=== PATIENT | female | born 1940 | race Caucasian/White ===

== ENCOUNTER 2022-05-02 21:56 | Emergency (ER) | payer MEDICARE | END 2022-05-02 23:39 | disposition home or self-care (01) | LOC: NAV ERS 21:56 | DX: G20 Parkinson's disease (principal); R53.1 Weakness; E03.9 Hypothyroidism, unspecified; Z79.899 Other long term (current) drug therapy | CPT/HCPCS: 99284 ==

== ENCOUNTER 2022-05-22 10:22 | Inpatient (IN) | payer OTHER, MEDICARE ==
[2022-05-22] MEDS ORDERED: Acetaminophen/Codeine 30-300mg Tablet ONE (12:04)
[2022-05-22 13:16] LABS: #Eosinphils 0.2 thou/uL (0.0-0.7); #Lymphocytes 0.9 thou/uL (1.20-3.40); #Monocytes 0.3 thou/uL (0.11-0.59); %Eosinophils 3.7 % (0.0-10.0); %Lymphocytes 20.9 % (21.0-51.0); %Monocytes 6.4 % (0.0-10.0); Hemoglobin 12.1 g/dL (12.0-16.0); Mean Corpuscular Hemoglobin 33.2 pg (27.0-31.0); Mean Platelet Volume 6.7 fL (7.4-10.4); Platelet Count 175 thou/uL (130-400); RBC Distribution Width 11.3 % (11.5-14.5); Red Blood Cell (RBC) Count 3.65 mill/uL (4.20-5.40); White Blood Cell (WBC) Count 4.4 thou/uL (4.8-10.8)
[2022-05-22 13:36] LABS: ALT (SGPT) 8 U/L (8-55); AST (SGOT) 16 U/L (5-34); Albumin 4.3 g/dL (3.4-4.8); Alkaline Phosphatase 50 U/L (40-110); Anion Gap 15 mmol/L (10-20); BUN (Urea Nitrogen) 12 mg/dL (9.8-20.1); Calc. Creatinine Clearance 0 mL/min (70-130); Calcium 9.6 mg/dL (7.8-10.44); Carbon Dioxide 24 mmol/L (23-31); Chloride 104 mmol/L (98-107); Estimated GFR 85; Globulin 2.3 g/dL (2.4-3.5); Glucose 126 mg/dL (83-110); Magnesium 2.4 mg/dL (1.6-2.6); Potassium 4.1 mmol/L (3.5-5.1); Protein, Total 6.6 g/dL (5.8-8.1); Sodium 139 mmol/L (136-145)
[2022-05-22 13:43] LABS: Bilirubin Negative (Negative); Blood, Urine Negative (Negative); Clarity Clear (Clear); Glucose, Urine (Dipstick) Negative (Negative); Ketone, Urine Negative (Negative); Leukocyte Negative (Negative); Nitrite Negative (Negative); Protein, Urine (Dipstick) Negative (Neg-Trace); Specific Gravity, Urine 1.015 (1.005-1.030); Urobilinogen 0.2 mg/dL (Less than 2)
[2022-05-22 14:11] LABS: SARS-CoV-2 NAA Rapid Test Not Detected (NotDetected)
[2022-05-22 15:53] VITALS: BMI 15.5
[2022-05-22] MEDS ORDERED: Acetaminophen 325 MG TAB PO PRN ×2 (17:50→18:00)
[2022-05-22] MEDS ORDERED: HYDROcodone/Acetaminophen 5/325 mg Tablet PO PRN (17:50)
[2022-05-22] MEDS ORDERED: Senokot S 8.6-50 MG TAB PO PRN (17:50)
[2022-05-22] MEDS ORDERED: Bisacodyl 10 MG SUPP PR PRN (17:50)
[2022-05-22] MEDS ORDERED: Ondansetron ODT 4 MG TAB PO PRN (17:50)
[2022-05-22] MEDS ORDERED: Morphine 4 MG/ML VIAL SLOW IVP PRN ×2 (17:54→18:11)
[2022-05-22] MEDS ORDERED: Ondansetron ODT 4 MG TAB SL PRN (18:00)
[2022-05-22] MEDS ORDERED: Ondansetron PF 4 MG/2 ML Vial IVP PRN (18:00)
[2022-05-22] MEDS: Carbidopa/Levodopa 25-100 mg Tablet PO SCH (20:19)
[2022-05-22] MEDS: Docusate 100 MG CAP PO SCH (20:19)
[2022-05-22] MEDS: Mirtazapine 15 MG Soltab PO SCH (20:19)
[2022-05-23] MEDS: Levothyroxine Sodium 50 MCG TAB PO SCH (05:11)
[2022-05-23 05:52] LABS: #Basophils 0.1 thou/uL (0.0-0.2); #Eosinphils 0.2 thou/uL (0.0-0.7); #Lymphocytes 0.9 thou/uL (1.20-3.40); #Monocytes 0.4 thou/uL (0.11-0.59); #Neutrophils 2.7 thou/uL (1.40-6.50); %Basophils 1.3 % (0.0-1.0); %Eosinophils 4.2 % (0.0-10.0); %Lymphocytes 21.4 % (21.0-51.0); %Monocytes 9.7 % (0.0-10.0); %Neutrophils 63.4 % (42.0-75.0); Hemoglobin 11.4 g/dL (12.0-16.0); Mean Corpuscular HGB CONC 32.1 g/dL (32.0-36.0); Mean Corpuscular Hemoglobin 33.2 pg (27.0-31.0); Mean Platelet Volume 7.1 fL (7.4-10.4); Platelet Count 159 thou/uL (130-400); RBC Distribution Width 11.5 % (11.5-14.5); Red Blood Cell (RBC) Count 3.45 mill/uL (4.20-5.40); White Blood Cell (WBC) Count 4.3 thou/uL (4.8-10.8)
[2022-05-23 06:04] LABS: Anion Gap 14 mmol/L (10-20); BUN (Urea Nitrogen) 14 mg/dL (9.8-20.1); Calc. Creatinine Clearance 39 mL/min (70-130); Carbon Dioxide 23 mmol/L (23-31); Chloride 102 mmol/L (98-107); Estimated GFR 88; Glucose 83 mg/dL (83-110); Sodium 135 mmol/L (136-145)
[2022-05-23] MEDS: Carbidopa/Levodopa 25-100 mg Tablet PO SCH ×3 (08:35→21:01)
[2022-05-23] MEDS: Enoxaparin Sodium 30 MG/0.3 ML SYRINGE SC SCH (08:35)
[2022-05-23] MEDS: Aripiprazole 10 MG TAB PO SCH (08:36)
[2022-05-23] MEDS: Bupropion 150 MG XL TAB PO SCH (08:36)
[2022-05-23] MEDS: Docusate 100 MG CAP PO SCH ×2 (08:36→21:01)
[2022-05-23] MEDS ORDERED: BUPROPION HCL 200 MG PO SCH (09:00)
[2022-05-23] MEDS ORDERED: Hyoscyamine Sulfate SL 0.125 mg Tablet PO PRN (11:43)
[2022-05-23] MEDS: Mirtazapine 15 MG Soltab PO SCH (21:01)
[2022-05-24] MEDS: Levothyroxine Sodium 50 MCG TAB PO SCH (05:36)
[2022-05-24] MEDS: Bupropion 150 MG XL TAB PO SCH (09:03)
[2022-05-24] MEDS: Docusate 100 MG CAP PO SCH (09:04)
[2022-05-24] MEDS: Aripiprazole 10 MG TAB PO SCH (09:04)
[2022-05-24] MEDS: Carbidopa/Levodopa 25-100 mg Tablet PO SCH ×2 (09:04→14:55)
[2022-05-24] MEDS: Enoxaparin Sodium 30 MG/0.3 ML SYRINGE SC SCH (09:04)
[2022-05-24 15:20] VITALS: TEMP 97.7
[2022-05-24 15:32] VITALS: BP 119/75
== END 2022-05-24 15:36 | disposition swing bed (61) | DRG 552 ==
LOC: NAV ERS 10:22 → UNDOADMIN 14:48 → NAV ACUTE 14:48 → UNDOADMIN 15:17 → NAV ACUTE 15:17
PROVIDERS: ADMIT Family Medicine; ATTEND Family Medicine
DX: S22.078A Other fracture of T9-T10 vertebra, initial encounter for closed fracture (principal); S32.19XA Other fracture of sacrum, initial encounter for closed fracture; G20 Parkinson's disease; S22.088A Other fracture of T11-T12 vertebra, initial encounter for closed fracture; F02.80 Dementia in other diseases classified elsewhere, unspecified severity, without behavioral disturbance, psychotic disturbance, mood disturbance, and anxiety; E03.9 Hypothyroidism, unspecified; F41.9 Anxiety disorder, unspecified; Z20.822 Contact with and (suspected) exposure to COVID-19; G47.00 Insomnia, unspecified; F31.9 Bipolar disorder, unspecified; W19.XXXA Unspecified fall, initial encounter; Z91.81 History of falling; Z88.2 Allergy status to sulfonamides; Y92.009 Unspecified place in unspecified non-institutional (private) residence as the place of occurrence of the external cause
CPT/HCPCS: 70450; 72125; 72128; 72131; 72192; 80048; 80053; 81003; 83735; 85025; J1650; U0002

== ENCOUNTER 2022-05-24 15:28 | Inpatient (IN) | payer MEDICARE ==
[2022-05-24] MEDS ORDERED: Bisacodyl 10 MG SUPP PR PRN (15:29)
[2022-05-24] MEDS ORDERED: Ondansetron ODT 4 MG TAB PO PRN (15:29)
[2022-05-24] MEDS ORDERED: Hyoscyamine Sulfate SL 0.125 mg Tablet PO PRN (15:29)
[2022-05-24] MEDS ORDERED: HYDROcodone/Acetaminophen 5/325 mg Tablet PO PRN (15:29)
[2022-05-24] MEDS: Mirtazapine 15 MG Soltab PO SCH (20:31)
[2022-05-24] MEDS: Docusate 100 MG CAP PO SCH (20:31)
[2022-05-24] MEDS: Carbidopa/Levodopa 25-100 mg Tablet PO SCH (20:31)
[2022-05-24] MEDS: Acetaminophen 325 MG TAB PO PRN (20:38)
[2022-05-25] MEDS: Levothyroxine Sodium 50 MCG TAB PO SCH (05:49)
[2022-05-25 06:01] LABS: #Eosinphils 0.2 thou/uL (0.0-0.7); #Lymphocytes 1.3 thou/uL (1.20-3.40); #Monocytes 0.4 thou/uL (0.11-0.59); %Basophils 1.2 % (0.0-1.0); %Eosinophils 4.4 % (0.0-10.0); %Lymphocytes 31.9 % (21.0-51.0); %Monocytes 10.7 % (0.0-10.0); %Neutrophils 51.8 % (42.0-75.0); Hemoglobin 10.7 g/dL (12.0-16.0); Mean Corpuscular HGB CONC 33.6 g/dL (32.0-36.0); Mean Corpuscular Hemoglobin 33.7 pg (27.0-31.0); Mean Platelet Volume 6.9 fL (7.4-10.4); Platelet Count 174 thou/uL (130-400); RBC Distribution Width 11.1 % (11.5-14.5); Red Blood Cell (RBC) Count 3.19 mill/uL (4.20-5.40); White Blood Cell (WBC) Count 3.9 thou/uL (4.8-10.8)
[2022-05-25 06:12] LABS: ALT (SGPT) 8 U/L (8-55); AST (SGOT) 12 U/L (5-34); Albumin 3.7 g/dL (3.4-4.8); Alkaline Phosphatase 43 U/L (40-110); Anion Gap 13 mmol/L (10-20); BUN (Urea Nitrogen) 13 mg/dL (9.8-20.1); Bilirubin, Total 0.5 mg/dL (0.2-1.2); Calc. Creatinine Clearance 40 mL/min (70-130); Calcium 8.7 mg/dL (7.8-10.44); Carbon Dioxide 23 mmol/L (23-31); Chloride 102 mmol/L (98-107); Estimated GFR 88; Globulin 2.1 g/dL (2.4-3.5); Glucose 88 mg/dL (83-110); Potassium 3.7 mmol/L (3.5-5.1); Protein, Total 5.8 g/dL (5.8-8.1); Sodium 134 mmol/L (136-145)
[2022-05-25] MEDS: Carbidopa/Levodopa 25-100 mg Tablet PO SCH ×3 (07:51→20:21)
[2022-05-25] MEDS: Aripiprazole 10 MG TAB PO SCH (07:52)
[2022-05-25] MEDS: Docusate 100 MG CAP PO SCH ×2 (07:56→20:21)
[2022-05-25] MEDS: Bupropion 150 MG XL TAB PO SCH (07:56)
[2022-05-25] MEDS: Enoxaparin Sodium 30 MG/0.3 ML SYRINGE SC SCH (07:56)
[2022-05-25] MEDS: Acetaminophen 325 MG TAB PO PRN ×2 (09:09→20:23)
[2022-05-25] MEDS: Chloraseptic Spray 180 ml Bottle PO PRN ×2 (19:24→22:03)
[2022-05-25] MEDS: Mirtazapine 15 MG Soltab PO SCH (20:21)
[2022-05-26] MEDS: Levothyroxine Sodium 50 MCG TAB PO SCH (05:46)
[2022-05-26] MEDS: Chloraseptic Spray 180 ml Bottle PO PRN ×5 (05:49→20:27)
[2022-05-26] MEDS: Acetaminophen 325 MG TAB PO PRN ×2 (06:08→20:24)
[2022-05-26] MEDS: Docusate 100 MG CAP PO SCH ×2 (08:40→20:23)
[2022-05-26] MEDS: Carbidopa/Levodopa 25-100 mg Tablet PO SCH ×3 (08:41→20:23)
[2022-05-26] MEDS: Aripiprazole 10 MG TAB PO SCH (08:41)
[2022-05-26] MEDS: Bupropion 150 MG XL TAB PO SCH (08:42)
[2022-05-26] MEDS: Enoxaparin Sodium 30 MG/0.3 ML SYRINGE SC SCH (08:42)
[2022-05-26] MEDS: Mirtazapine 15 MG Soltab PO SCH (20:23)
[2022-05-27] MEDS: Levothyroxine Sodium 50 MCG TAB PO SCH (05:35)
[2022-05-27] MEDS: Chloraseptic Spray 180 ml Bottle PO PRN ×3 (06:15→20:56)
[2022-05-27] MEDS: Bupropion 150 MG XL TAB PO SCH (08:24)
[2022-05-27] MEDS: Docusate 100 MG CAP PO SCH ×2 (08:25→20:55)
[2022-05-27] MEDS: Aripiprazole 10 MG TAB PO SCH (08:25)
[2022-05-27] MEDS: Enoxaparin Sodium 30 MG/0.3 ML SYRINGE SC SCH (08:26)
[2022-05-27] MEDS: Carbidopa/Levodopa 25-100 mg Tablet PO SCH ×3 (08:26→20:56)
[2022-05-27] MEDS: Acetaminophen 325 MG TAB PO PRN ×2 (10:23→20:55)
[2022-05-27] MEDS: Mirtazapine 15 MG Soltab PO SCH (20:55)
[2022-05-27 23:43] VITALS: BMI 15.7
[2022-05-28] MEDS: Levothyroxine Sodium 50 MCG TAB PO SCH (05:26)
[2022-05-28] MEDS: Carbidopa/Levodopa 25-100 mg Tablet PO SCH ×3 (08:17→19:46)
[2022-05-28] MEDS: Aripiprazole 10 MG TAB PO SCH (08:17)
[2022-05-28] MEDS: Docusate 100 MG CAP PO SCH ×2 (08:18→19:46)
[2022-05-28] MEDS: Enoxaparin Sodium 30 MG/0.3 ML SYRINGE SC SCH (08:18)
[2022-05-28] MEDS: Bupropion 150 MG XL TAB PO SCH (08:18)
[2022-05-28] MEDS: Mirtazapine 15 MG Soltab PO SCH (19:46)
[2022-05-28] MEDS: Acetaminophen 325 MG TAB PO PRN (19:46)
[2022-05-29] MEDS: Levothyroxine Sodium 50 MCG TAB PO SCH (05:28)
[2022-05-29 05:47] LABS: Anion Gap 12 mmol/L (10-20); BUN (Urea Nitrogen) 10 mg/dL (9.8-20.1); Calc. Creatinine Clearance 44 mL/min (70-130); Calcium 9.1 mg/dL (7.8-10.44); Carbon Dioxide 27 mmol/L (23-31); Chloride 101 mmol/L (98-107); Estimated GFR 90; Glucose 88 mg/dL (83-110); Potassium 3.8 mmol/L (3.5-5.1); Sodium 136 mmol/L (136-145)
[2022-05-29] MEDS: Aripiprazole 10 MG TAB PO SCH (08:33)
[2022-05-29] MEDS: Docusate 100 MG CAP PO SCH ×2 (08:33→20:07)
[2022-05-29] MEDS: Carbidopa/Levodopa 25-100 mg Tablet PO SCH ×3 (08:34→20:07)
[2022-05-29] MEDS: Enoxaparin Sodium 30 MG/0.3 ML SYRINGE SC SCH (08:34)
[2022-05-29] MEDS: Bupropion 150 MG XL TAB PO SCH (08:34)
[2022-05-29] MEDS: Mirtazapine 15 MG Soltab PO SCH (20:07)
[2022-05-30] MEDS: Levothyroxine Sodium 50 MCG TAB PO SCH (05:27)
[2022-05-30] MEDS: Aripiprazole 10 MG TAB PO SCH (07:59)
[2022-05-30] MEDS: Carbidopa/Levodopa 25-100 mg Tablet PO SCH ×3 (08:00→20:14)
[2022-05-30] MEDS: Bupropion 150 MG XL TAB PO SCH (08:00)
[2022-05-30] MEDS: Enoxaparin Sodium 30 MG/0.3 ML SYRINGE SC SCH (08:01)
[2022-05-30] MEDS: Docusate 100 MG CAP PO SCH ×2 (08:01→20:14)
[2022-05-30] MEDS: Mirtazapine 15 MG Soltab PO SCH (20:13)
[2022-05-30] MEDS: Senokot S 8.6-50 MG TAB PO PRN (20:14)
[2022-05-31] MEDS: Levothyroxine Sodium 50 MCG TAB PO SCH (05:25)
[2022-05-31] MEDS: Aripiprazole 10 MG TAB PO SCH (08:01)
[2022-05-31] MEDS: Carbidopa/Levodopa 25-100 mg Tablet PO SCH ×3 (08:01→20:53)
[2022-05-31] MEDS: Docusate 100 MG CAP PO SCH ×2 (08:01→20:53)
[2022-05-31] MEDS: Bupropion 150 MG XL TAB PO SCH (08:02)
[2022-05-31] MEDS: Enoxaparin Sodium 30 MG/0.3 ML SYRINGE SC SCH (08:02)
[2022-05-31] MEDS: Acetaminophen 325 MG TAB PO PRN (20:53)
[2022-05-31] MEDS: Mirtazapine 15 MG Soltab PO SCH (20:53)
[2022-06-01] MEDS: Levothyroxine Sodium 50 MCG TAB PO SCH (05:21)
[2022-06-01 06:11] LABS: #Basophils 0.1 thou/uL (0.0-0.2); #Eosinphils 0.2 thou/uL (0.0-0.7); #Lymphocytes 1.1 thou/uL (1.20-3.40); #Monocytes 0.4 thou/uL (0.11-0.59); #Neutrophils 1.8 thou/uL (1.40-6.50); %Basophils 1.5 % (0.0-1.0); %Eosinophils 6.2 % (0.0-10.0); %Lymphocytes 31.1 % (21.0-51.0); %Monocytes 10.8 % (0.0-10.0); %Neutrophils 50.5 % (42.0-75.0); Hemoglobin 10.8 g/dL (12.0-16.0); Mean Corpuscular HGB CONC 32.4 g/dL (32.0-36.0); Mean Corpuscular Hemoglobin 33.2 pg (27.0-31.0); Mean Platelet Volume 6.2 fL (7.4-10.4); Platelet Count 251 thou/uL (130-400); RBC Distribution Width 11.7 % (11.5-14.5); Red Blood Cell (RBC) Count 3.26 mill/uL (4.20-5.40); White Blood Cell (WBC) Count 3.6 thou/uL (4.8-10.8)
[2022-06-01] MEDS: Bupropion 150 MG XL TAB PO SCH (08:28)
[2022-06-01] MEDS: Carbidopa/Levodopa 25-100 mg Tablet PO SCH ×3 (08:28→20:36)
[2022-06-01] MEDS: Aripiprazole 10 MG TAB PO SCH (08:29)
[2022-06-01] MEDS: Docusate 100 MG CAP PO SCH ×2 (08:29→20:36)
[2022-06-01] MEDS: Enoxaparin Sodium 30 MG/0.3 ML SYRINGE SC SCH (08:29)
[2022-06-01] MEDS: Acetaminophen 325 MG TAB PO PRN (16:51)
[2022-06-01] MEDS: Mirtazapine 15 MG Soltab PO SCH (20:36)
[2022-06-02] MEDS: Levothyroxine Sodium 50 MCG TAB PO SCH (05:57)
[2022-06-02] MEDS: Docusate 100 MG CAP PO SCH ×2 (08:28→20:35)
[2022-06-02] MEDS: Carbidopa/Levodopa 25-100 mg Tablet PO SCH ×3 (08:28→20:35)
[2022-06-02] MEDS: Aripiprazole 10 MG TAB PO SCH (08:28)
[2022-06-02] MEDS: Bupropion 150 MG XL TAB PO SCH (08:28)
[2022-06-02] MEDS: Enoxaparin Sodium 30 MG/0.3 ML SYRINGE SC SCH (08:29)
[2022-06-02] MEDS: Acetaminophen 325 MG TAB PO PRN (11:22)
[2022-06-02] MEDS: Mirtazapine 15 MG Soltab PO SCH (20:35)
[2022-06-03] MEDS: Levothyroxine Sodium 50 MCG TAB PO SCH (05:51)
[2022-06-03] MEDS: Docusate 100 MG CAP PO SCH ×2 (08:36→20:11)
[2022-06-03] MEDS: Enoxaparin Sodium 30 MG/0.3 ML SYRINGE SC SCH (08:36)
[2022-06-03] MEDS: Aripiprazole 10 MG TAB PO SCH (08:37)
[2022-06-03] MEDS: Carbidopa/Levodopa 25-100 mg Tablet PO SCH ×3 (08:38→20:11)
[2022-06-03] MEDS: Bupropion 150 MG XL TAB PO SCH (08:38)
[2022-06-03] MEDS: Mirtazapine 15 MG Soltab PO SCH (20:11)
[2022-06-04] MEDS: Levothyroxine Sodium 50 MCG TAB PO SCH (05:57)
[2022-06-04] MEDS: Bupropion 150 MG XL TAB PO SCH (09:25)
[2022-06-04] MEDS: Carbidopa/Levodopa 25-100 mg Tablet PO SCH ×3 (09:32→20:16)
[2022-06-04] MEDS: Docusate 100 MG CAP PO SCH ×2 (09:32→20:16)
[2022-06-04] MEDS: Aripiprazole 10 MG TAB PO SCH (09:33)
[2022-06-04] MEDS: Enoxaparin Sodium 30 MG/0.3 ML SYRINGE SC SCH (09:34)
[2022-06-04] MEDS: Senokot S 8.6-50 MG TAB PO PRN (14:42)
[2022-06-04] MEDS: Mirtazapine 15 MG Soltab PO SCH (20:16)
[2022-06-05] MEDS: Levothyroxine Sodium 50 MCG TAB PO SCH (05:47)
[2022-06-05 06:03] LABS: #Eosinphils 0.2 thou/uL (0.0-0.7); #Monocytes 0.5 thou/uL (0.11-0.59); #Neutrophils 2.1 thou/uL (1.40-6.50); %Basophils 1.1 % (0.0-1.0); %Eosinophils 5.8 % (0.0-10.0); %Monocytes 11.7 % (0.0-10.0); %Neutrophils 55.4 % (42.0-75.0); Hemoglobin 11.2 g/dL (12.0-16.0); Mean Corpuscular HGB CONC 33.5 g/dL (32.0-36.0); Mean Corpuscular Hemoglobin 34.1 pg (27.0-31.0); Mean Platelet Volume 5.7 fL (7.4-10.4); Platelet Count 258 thou/uL (130-400); RBC Distribution Width 11.5 % (11.5-14.5); Red Blood Cell (RBC) Count 3.29 mill/uL (4.20-5.40); White Blood Cell (WBC) Count 3.8 thou/uL (4.8-10.8)
[2022-06-05 06:07] LABS: Anion Gap 12 mmol/L (10-20); BUN (Urea Nitrogen) 12 mg/dL (9.8-20.1); Calc. Creatinine Clearance 44 mL/min (70-130); Calcium 8.9 mg/dL (7.8-10.44); Carbon Dioxide 27 mmol/L (23-31); Chloride 99 mmol/L (98-107); Estimated GFR 89; Glucose 92 mg/dL (83-110); Potassium 4.3 mmol/L (3.5-5.1); Sodium 134 mmol/L (136-145)
[2022-06-05] MEDS: Aripiprazole 10 MG TAB PO SCH (08:21)
[2022-06-05] MEDS: Enoxaparin Sodium 30 MG/0.3 ML SYRINGE SC SCH (08:21)
[2022-06-05] MEDS: Docusate 100 MG CAP PO SCH ×2 (08:22→20:38)
[2022-06-05] MEDS: Bupropion 150 MG XL TAB PO SCH (08:22)
[2022-06-05] MEDS: Carbidopa/Levodopa 25-100 mg Tablet PO SCH ×3 (08:22→20:38)
[2022-06-05] MEDS: Mirtazapine 15 MG Soltab PO SCH (20:38)
[2022-06-06] MEDS: Levothyroxine Sodium 50 MCG TAB PO SCH (05:25)
[2022-06-06] MEDS: Enoxaparin Sodium 30 MG/0.3 ML SYRINGE SC SCH (09:21)
[2022-06-06] MEDS: Bupropion 150 MG XL TAB PO SCH (09:21)
[2022-06-06] MEDS: Carbidopa/Levodopa 25-100 mg Tablet PO SCH ×2 (09:22→14:24)
[2022-06-06] MEDS: Aripiprazole 10 MG TAB PO SCH (09:22)
[2022-06-06] MEDS: Docusate 100 MG CAP PO SCH (09:23)
[2022-06-06 10:56] VITALS: BP 141/64; TEMP 97.6
== END 2022-06-06 14:40 | DRG 552 ==
LOC: NAV ACUTE 15:47
PROVIDERS: ADMIT Family Medicine; ATTEND Family Medicine
DX: S22.079A Unspecified fracture of T9-T10 vertebra, initial encounter for closed fracture (principal); S32.10XA Unspecified fracture of sacrum, initial encounter for closed fracture; E87.1 Hypo-osmolality and hyponatremia; S22.089A Unspecified fracture of T11-T12 vertebra, initial encounter for closed fracture; W19.XXXA Unspecified fall, initial encounter; W19.XXXD Unspecified fall, subsequent encounter; G20 Parkinson's disease; F02.80 Dementia in other diseases classified elsewhere, unspecified severity, without behavioral disturbance, psychotic disturbance, mood disturbance, and anxiety; E03.9 Hypothyroidism, unspecified; F41.9 Anxiety disorder, unspecified; F32.A Depression, unspecified; G47.00 Insomnia, unspecified; D53.9 Nutritional anemia, unspecified; Z20.822 Contact with and (suspected) exposure to COVID-19; Z91.81 History of falling; Y92.9 Unspecified place or not applicable; Z88.2 Allergy status to sulfonamides
CPT/HCPCS: 36415; 80048; 80053; 82607; 85025; J1650; U0003; U0005

== ENCOUNTER 2022-06-14 15:37 | Emergency (ER) | payer MEDICARE ==
[2022-06-14] MEDS ORDERED: Orphenadrine Citrate 60 MG/2 ML VIAL ONE (16:26)
== END 2022-06-14 17:48 ==
LOC: NAV ERS 15:37
DX: S00.03XA Contusion of scalp, initial encounter (principal); M54.50 Low back pain, unspecified; G89.29 Other chronic pain; E03.9 Hypothyroidism, unspecified; Z79.899 Other long term (current) drug therapy; W19.XXXA Unspecified fall, initial encounter
CPT/HCPCS: 70450; 72125; 72128; 72131; J2360

== ENCOUNTER 2022-08-22 11:38 | Outpatient (CLI) | payer MEDICARE | END 2022-08-22 11:39 | disposition home or self-care (01) | LOC: NAV RAD 11:38 | PROVIDERS: ATTEND Physician Assistant | DX: S22.070A Wedge compression fracture of T9-T10 vertebra, initial encounter for closed fracture (principal); S22.080A Wedge compression fracture of T11-T12 vertebra, initial encounter for closed fracture | CPT/HCPCS: 72072 ==

== ENCOUNTER 2022-11-29 13:13 | Emergency (ER) | payer MEDICARE, MEDICAID ==
[2022-11-29 14:35] LABS: #Eosinphils 0.1 thou/uL (0.0-0.7); #Lymphocytes 0.8 thou/uL (1.20-3.40); #Monocytes 0.5 thou/uL (0.11-0.59); #Neutrophils 3.1 thou/uL (1.40-6.50); %Basophils 0.7 % (0.0-1.0); %Eosinophils 1.8 % (0.0-10.0); %Lymphocytes 17.8 % (21.0-51.0); %Monocytes 10.1 % (0.0-10.0); %Neutrophils 69.5 % (42.0-75.0); Hemoglobin 13.4 g/dL (12.0-16.0); Mean Corpuscular HGB CONC 33.3 g/dL (32.0-36.0); Mean Corpuscular Volume 99.1 fl (78.0-98.0); Mean Platelet Volume 6.5 fL (7.4-10.4); Platelet Count 263 10x3/uL (130-400); Red Blood Cell (RBC) Count 4.05 mill/uL (4.20-5.40); White Blood Cell (WBC) Count 4.4 10x3/uL (4.8-10.8)
[2022-11-29 14:54] LABS: ALT (SGPT) 6 U/L (8-55); AST (SGOT) 14 U/L (5-34); Albumin 4.6 g/dL (3.4-4.8); Alkaline Phosphatase 97 U/L (40-110); Anion Gap 15 mmol/L (10-20); BUN (Urea Nitrogen) 15 mg/dL (9.8-20.1); Bilirubin, Total 0.5 mg/dL (0.2-1.2); Calc. Creatinine Clearance 0 mL/min (70-130); Calcium 9.6 mg/dL (7.8-10.44); Carbon Dioxide 24 mmol/L (23-31); Chloride 100 mmol/L (98-107); Estimated GFR 68; Globulin 3.2 g/dL (2.4-3.5); Glucose 106 mg/dL (83-110); Potassium 3.6 mmol/L (3.5-5.1); Protein, Total 7.8 g/dL (5.8-8.1); Sodium 135 mmol/L (136-145)
[2022-11-29] MEDS ORDERED: Carbidopa/Levodopa 25-100 mg Tablet PO SCH (15:45)
[2022-11-29 16:08] LABS: Bilirubin Negative (Negative); Blood, Urine Trace (Negative); Clarity Clear (Clear); Glucose, Urine (Dipstick) Negative (Negative); Ketone, Urine Negative (Negative); Leukocyte Small (Negative); Nitrite Negative (Negative); Protein, Urine (Dipstick) Negative (Neg-Trace); Specific Gravity, Urine 1.021 (1.002-1.036); Urobilinogen 0.2 mg/dL (Less than 2)
[2022-11-29 16:13] LABS: Bacteria/HPF 2+ HPF (None Seen); RBC/HPF 0-3 HPF (0-3); Squamous Epithelial 0-3 HPF (0-3)
[2022-11-29] MEDS ORDERED: cefTRIAXone\\ROCEPHIN 1 GM VIAL ONE (16:41)
[2022-11-29] MEDS ORDERED: Sodium Chloride 0.9% 100 ML ONE (16:41)
== END 2022-11-29 17:30 | disposition home or self-care (01) ==
LOC: NAV ERS 13:13
DX: S22.081A Stable burst fracture of T11-T12 vertebra, initial encounter for closed fracture (principal); N30.01 Acute cystitis with hematuria; E03.9 Hypothyroidism, unspecified; D64.9 Anemia, unspecified; Z79.899 Other long term (current) drug therapy; X58.XXXA Exposure to other specified factors, initial encounter
CPT/HCPCS: 36415; 74177; 80053; 81003; 81015; 83690; 85025; 87077; 87086; 96365; J0696; J3490

== ENCOUNTER 2022-12-02 10:15 | Inpatient (IN) | payer MEDICARE, OTHER ==
[2022-12-02 11:17] LABS: #Lymphocytes 0.8 thou/uL (1.20-3.40); #Monocytes 0.3 thou/uL (0.11-0.59); #Neutrophils 2.6 thou/uL (1.40-6.50); %Basophils 1.3 % (0.0-1.0); %Eosinophils 1.3 % (0.0-10.0); %Monocytes 7.6 % (0.0-10.0); %Neutrophils 69.8 % (42.0-75.0); Hemoglobin 12.2 g/dL (12.0-16.0); Mean Corpuscular HGB CONC 32.9 g/dL (32.0-36.0); Mean Corpuscular Hemoglobin 32.6 pg (27.0-31.0); Mean Corpuscular Volume 98.9 fl (78.0-98.0); Mean Platelet Volume 5.8 fL (7.4-10.4); Platelet Count 230 10x3/uL (130-400); RBC Distribution Width 11.9 % (11.5-14.5); Red Blood Cell (RBC) Count 3.74 mill/uL (4.20-5.40); White Blood Cell (WBC) Count 3.8 10x3/uL (4.8-10.8)
[2022-12-02 11:22] LABS: ALT (SGPT) Less than 3 U/L (8-55); AST (SGOT) 13 U/L (5-34); Albumin 4.1 g/dL (3.4-4.8); Alkaline Phosphatase 88 U/L (40-110); Anion Gap 14 mmol/L (10-20); BUN (Urea Nitrogen) 14 mg/dL (9.8-20.1); Bilirubin, Total 0.3 mg/dL (0.2-1.2); Calc. Creatinine Clearance 0 mL/min (70-130); Calcium 8.9 mg/dL (7.8-10.44); Carbon Dioxide 23 mmol/L (23-31); Chloride 100 mmol/L (98-107); Estimated GFR 89; Globulin 2.8 g/dL (2.4-3.5); Glucose 129 mg/dL (83-110); Lipase 11 U/L (8-78); Potassium 3.6 mmol/L (3.5-5.1); Protein, Total 6.9 g/dL (5.8-8.1); Sodium 133 mmol/L (136-145)
[2022-12-02 11:38] LABS: Bilirubin Negative (Negative); Blood, Urine Trace (Negative); Clarity Clear (Clear); Glucose, Urine (Dipstick) Negative (Negative); Ketone, Urine Trace mg/dL (Negative); Leukocyte Negative (Negative); Nitrite Negative (Negative); Protein, Urine (Dipstick) Negative (Neg-Trace); Urobilinogen 0.2 mg/dL (Less than 2)
[2022-12-02 11:51] LABS: Mucous/LPF 1+ LPF (<2+); RBC/HPF 0-3 HPF (0-3); Squamous Epithelial 0-3 HPF (0-3)
[2022-12-02] MEDS ORDERED: Sodium Chloride 0.9% 500 ML ONE (13:16)
[2022-12-02] MEDS ORDERED: cefTRIAXone (ROCEPHIN) 1 GM VIAL ONE (15:11)
[2022-12-02 16:21] VITALS: BMI 17.8
[2022-12-02] MEDS ORDERED: Artificial Tear Sol 15 ML BOT EA EYE PRN (17:27)
[2022-12-02] MEDS ORDERED: Benzonatate 100 MG CAP PO PRN (17:27)
[2022-12-02] MEDS ORDERED: Acetaminophen 650 MG Suppository PR PRN (17:27)
[2022-12-02] MEDS ORDERED: Bisacodyl 5 MG TAB PO PRN (17:27)
[2022-12-02] MEDS ORDERED: Cepastat Lozenges 1 LOZ PO PRN (17:27)
[2022-12-02] MEDS ORDERED: Calcium Carbonate 500 MG ChewTAB PO PRN (17:27)
[2022-12-02] MEDS ORDERED: Sodium Chloride 0.65% Nasal 44 ML BOT EA NARE PRN (17:27)
[2022-12-02] MEDS ORDERED: Acetaminophen 325 MG TAB PO PRN (17:27)
[2022-12-02] MEDS ORDERED: Senokot S 8.6-50 MG TAB PO PRN (17:27)
[2022-12-02] MEDS ORDERED: Guaifenesin DM 100-10/5 ML UDCUP PO PRN (17:27)
[2022-12-02] MEDS ORDERED: Ondansetron ODT 4 MG TAB PO PRN (17:27)
[2022-12-02] MEDS ORDERED: Bisacodyl 10 MG SUPP PR PRN (17:27)
[2022-12-02] MEDS: Sodium Chloride 0.9% 1,000 ML IV SCH (18:25)
[2022-12-02 18:38] LABS: SARS-CoV-2 NAA Rapid Test Not Detected (NotDetected)
[2022-12-02] MEDS: Mirtazapine 15 MG Soltab PO SCH (20:51)
[2022-12-02] MEDS: Carbidopa/Levodopa 25-100 mg Tablet PO SCH (20:51)
[2022-12-02] MEDS: QUEtiapine 25 MG TAB PO SCH (20:52)
[2022-12-02] MEDS ORDERED: Famotidine 20 MG TAB PO SCH (21:00)
[2022-12-03] MEDS: Levothyroxine Sodium 50 MCG TAB PO SCH (05:21)
[2022-12-03] MEDS: Sodium Chloride 0.9% 1,000 ML IV SCH ×4 (05:21→18:19)
[2022-12-03 05:43] LABS: #Eosinphils 0.2 thou/uL (0.0-0.7); #Lymphocytes 1.6 thou/uL (1.20-3.40); #Monocytes 0.5 thou/uL (0.11-0.59); #Neutrophils 2.4 thou/uL (1.40-6.50); %Eosinophils 3.4 % (0.0-10.0); %Lymphocytes 33.7 % (21.0-51.0); %Neutrophils 50.9 % (42.0-75.0); Hemoglobin 11.3 g/dL (12.0-16.0); Mean Corpuscular HGB CONC 33.7 g/dL (32.0-36.0); Mean Corpuscular Hemoglobin 33.3 pg (27.0-31.0); Mean Corpuscular Volume 98.6 fl (78.0-98.0); Mean Platelet Volume 6.6 fL (7.4-10.4); Platelet Count 241 10x3/uL (130-400); RBC Distribution Width 12.1 % (11.5-14.5); Red Blood Cell (RBC) Count 3.39 mill/uL (4.20-5.40); White Blood Cell (WBC) Count 4.7 10x3/uL (4.8-10.8)
[2022-12-03 05:53] LABS: Anion Gap 10 mmol/L (10-20); BUN (Urea Nitrogen) 9 mg/dL (9.8-20.1); Calc. Creatinine Clearance 47 mL/min (70-130); Calcium 8.3 mg/dL (7.8-10.44); Carbon Dioxide 23 mmol/L (23-31); Chloride 106 mmol/L (98-107); Estimated GFR 89; Glucose 85 mg/dL (83-110); Potassium 3.3 mmol/L (3.5-5.1); Sodium 136 mmol/L (136-145)
[2022-12-03] MEDS: Carbidopa/Levodopa 25-100 mg Tablet PO SCH ×3 (09:19→21:10)
[2022-12-03] MEDS: QUEtiapine 25 MG TAB PO SCH ×2 (09:20→21:10)
[2022-12-03] MEDS: Bupropion 150 MG XL TAB PO SCH (09:20)
[2022-12-03] MEDS ORDERED: cefTRIAXone\\ROCEPHIN 1 GM in Sodium Chloride 0.9% 100 ML IVPB SCH (15:00)
[2022-12-03] MEDS: Mirtazapine 15 MG Soltab PO SCH (21:10)
[2022-12-04] MEDS: Sodium Chloride 0.9% 1,000 ML IV SCH ×2 (01:08→08:18)
[2022-12-04] MEDS: Levothyroxine Sodium 50 MCG TAB PO SCH (06:06)
[2022-12-04] MEDS: Carbidopa/Levodopa 25-100 mg Tablet PO SCH ×3 (08:17→21:39)
[2022-12-04] MEDS: Bupropion 150 MG XL TAB PO SCH (08:17)
[2022-12-04] MEDS: QUEtiapine 25 MG TAB PO SCH ×2 (08:18→21:39)
[2022-12-04] MEDS ORDERED: Ciprofloxacin 500 MG TAB PO SCH (10:15)
[2022-12-04] MEDS ORDERED: Mirtazapine 15 MG TAB PO SCH (21:00)
[2022-12-04] MEDS: Ciprofloxacin 500 MG TAB PO SCH (21:39)
[2022-12-05] MEDS: Ciprofloxacin 500 MG TAB PO SCH (05:21)
[2022-12-05] MEDS: Levothyroxine Sodium 50 MCG TAB PO SCH (05:21)
[2022-12-05] MEDS: QUEtiapine 25 MG TAB PO SCH (08:38)
[2022-12-05] MEDS: Bupropion 150 MG XL TAB PO SCH (08:38)
[2022-12-05] MEDS: Carbidopa/Levodopa 25-100 mg Tablet PO SCH (08:39)
[2022-12-05 12:29] VITALS: BP 171/73; TEMP 97
[2022-12-07] MEDS ORDERED: FLU VACC QS2022-23(65YR UP)/PF 240 MCG/0.7 ML SYRINGE IM ONE (14:00)
== END 2022-12-05 13:00 | DRG 690 ==
LOC: NAV ERS 10:15 → NAV ACUTE 15:24
PROVIDERS: ADMIT Family Medicine; ATTEND Family Medicine
DX: N39.0 Urinary tract infection, site not specified (principal); Z20.822 Contact with and (suspected) exposure to COVID-19; E03.9 Hypothyroidism, unspecified; K21.9 Gastro-esophageal reflux disease without esophagitis; G20 Parkinson's disease; G47.00 Insomnia, unspecified; F32.A Depression, unspecified; F41.9 Anxiety disorder, unspecified; F02.80 Dementia in other diseases classified elsewhere, unspecified severity, without behavioral disturbance, psychotic disturbance, mood disturbance, and anxiety; Z79.890 Hormone replacement therapy; Z79.899 Other long term (current) drug therapy; D64.9 Anemia, unspecified; E86.0 Dehydration
CPT/HCPCS: 36415; 70450; 71045; 80048; 80053; 81003; 81015; 83605; 83690; 84484; 85025; 93005; 96374; J0696; J3490; J7030; J7050; U0002

== ENCOUNTER 2023-02-05 16:55 | Emergency (ER) | payer MEDICARE, OTHER ==
[2023-02-05] MEDS ORDERED: Ondansetron PF 4 MG/2 ML Vial ONE (17:22)
[2023-02-05] MEDS ORDERED: HYDROmorphone 0.5 MG/0.5 ML SYRINGE ONE (17:22)
== END 2023-02-05 18:25 ==
LOC: NAV ERS 16:55
DX: S42.214A Unspecified nondisplaced fracture of surgical neck of right humerus, initial encounter for closed fracture (principal); E03.9 Hypothyroidism, unspecified; G20 Parkinson's disease; F02.80 Dementia in other diseases classified elsewhere, unspecified severity, without behavioral disturbance, psychotic disturbance, mood disturbance, and anxiety; G47.00 Insomnia, unspecified; Z79.899 Other long term (current) drug therapy; W18.30XA Fall on same level, unspecified, initial encounter; Y92.129 Unspecified place in nursing home as the place of occurrence of the external cause
CPT/HCPCS: 96374; 96375; J1170; J2405

== ENCOUNTER 2023-03-15 10:22 | Outpatient (CLI) | payer MEDICARE, OTHER | END 2023-03-15 10:23 | disposition home or self-care (01) | LOC: NAV RAD 10:22 | PROVIDERS: ATTEND Orthopaedic Surgery | DX: M25.511 Pain in right shoulder (principal); S42.211D Unspecified displaced fracture of surgical neck of right humerus, subsequent encounter for fracture with routine healing ==

== ENCOUNTER 2023-11-19 19:33 | Emergency (ER) | payer MEDICARE, MEDICAID ==
[2023-11-19 20:37] LABS: Bilirubin Negative (Negative); Blood, Urine Negative (Negative); Clarity Clear (Clear); Glucose, Urine (Dipstick) Negative (Negative); Ketone, Urine 40 mg/dL (Negative); Leukocyte Small (Negative); Nitrite Positive (Negative); Protein, Urine (Dipstick) 30 mg/dL (Neg-Trace)
[2023-11-19 20:37] LABS: #Eosinphils 0.1 thou/uL (0.0-0.7); #Monocytes 0.6 thou/uL (0.11-0.59); #Neutrophils 4.7 thou/uL (1.40-6.50); %Basophils 0.5 % (0.0-1.0); %Eosinophils 0.8 % (0.0-10.0); %Lymphocytes 15.4 % (21.0-51.0); %Monocytes 9.8 % (0.0-10.0); %Neutrophils 73.6 % (42.0-75.0); Hematocrit 28.7 % (36.0-47.0); Hemoglobin 9.7 g/dL (12.0-16.0); Mean Corpuscular HGB CONC 33.6 g/dL (32.0-36.0); Mean Corpuscular Hemoglobin 30.2 pg (27.0-31.0); Mean Platelet Volume 6.9 fL (7.4-10.4); Platelet Count 196 10x3/uL (130-400); RBC Distribution Width 14.3 % (11.5-14.5); Red Blood Cell (RBC) Count 3.19 mill/uL (4.20-5.40); White Blood Cell (WBC) Count 6.4 10x3/uL (4.8-10.8)
[2023-11-19 20:43] LABS: Bacteria/HPF 3+ HPF (None Seen); CAUTI Indications for Culture Alt mental st,lethar; Mucous/LPF 1+ LPF (<2+); RBC/HPF None Seen HPF (0-3); Specific Gravity, Urine 1.028 (1.002-1.036); Squamous Epithelial None Seen HPF (0-3); WBC/HPF Greater than 50 HPF (0-3)
[2023-11-19 20:45] LABS: Urine Culture Reflex Yes Yes
[2023-11-19 20:52] LABS: ALT (SGPT) Less than 7 U/L (8-55); AST (SGOT) 18 U/L (5-34); Albumin 3.7 g/dL (3.4-4.8); Alkaline Phosphatase 76 U/L (40-110); Anion Gap 13 mmol/L (10-20); BUN (Urea Nitrogen) 18 mg/dL (9.8-20.1); Bilirubin, Total 0.8 mg/dL (0.2-1.2); Calc. Creatinine Clearance 0 mL/min (70-130); Calcium 8.6 mg/dL (7.8-10.44); Carbon Dioxide 24 mmol/L (23-31); Chloride 102 mmol/L (98-107); Estimated GFR 87; Globulin 2.7 g/dL (2.4-3.5); Glucose 111 mg/dL (83-110); Potassium 3.2 mmol/L (3.5-5.1); Protein, Total 6.4 g/dL (5.8-8.1); Sodium 136 mmol/L (136-145)
[2023-11-19] MEDS ORDERED: cefTRIAXone (ROCEPHIN) 1 GM VIAL ONE (21:21)
[2023-11-19] MEDS ORDERED: Sodium Chloride 0.9% 100 ML ONE (21:21)
== END 2023-11-20 03:21 | disposition short-term general hospital (02) ==
LOC: NAV ERS 19:33
DX: S72.052A Unspecified fracture of head of left femur, initial encounter for closed fracture (principal); S32.041A Stable burst fracture of fourth lumbar vertebra, initial encounter for closed fracture; N39.0 Urinary tract infection, site not specified; G20.A1 Parkinson's disease without dyskinesia, without mention of fluctuations; E03.9 Hypothyroidism, unspecified; W06.XXXA Fall from bed, initial encounter; Z79.899 Other long term (current) drug therapy
CPT/HCPCS: 51701; 70450; 71045; 72125; 72192; 80053; 81001; 85025; 87077; 87086; 87186; 96365; G0390; J0696; J3490

== ENCOUNTER 2024-04-25 21:32 | Emergency (ER) | payer MEDICARE, MEDICAID | END 2024-04-25 23:22 | LOC: NAV ERS 21:32 | DX: S00.93XA Contusion of unspecified part of head, initial encounter (principal); S80.01XA Contusion of right knee, initial encounter; F03.90 Unspecified dementia, unspecified severity, without behavioral disturbance, psychotic disturbance, mood disturbance, and anxiety; E03.9 Hypothyroidism, unspecified; Z79.899 Other long term (current) drug therapy; W22.8XXA Striking against or struck by other objects, initial encounter | CPT/HCPCS: 70450; 72125 ==